=== PATIENT | female | born 1995 ===

== ENCOUNTER 2024-07-01 05:26 | Day surgery (SDC) | payer OTHER ==
[2024-06-30 14:08] VITALS: BMI 29.8
[2024-07-01] MEDS ORDERED: LIDOCAINE HCL/PF 1% SDV 5ML VIAL ONE (07:59)
[2024-07-01] MEDS ORDERED: BUPIVACAINE HCL/PF 0.75% 10 ML VIAL ONE (07:59)
[2024-07-01 13:31] VITALS: RESP 16
[2024-07-01] MEDS: LIDOCAINE HCL 1% PRESERVATIVE FREE - 30ML VIAL IJ ONE (14:50)
[2024-07-01] MEDS: BUPIVACAINE HCL/PF 0.75% 10 ML VIAL NR ONE ×2 (14:57)
[2024-07-01 15:48] VITALS: BP 118/70; PULSE 63; TEMP 98
== END 2024-07-01 15:16 | disposition home or self-care (01) ==
LOC: JASU-SURG 05:26
PROVIDERS: ATTEND Pain Medicine Pain Medicine
PROC: 3E0T3BZ Introduction of Anesthetic Agent into Peripheral Nerves and Plexi, Percutaneous Approach (ICD-10-PCS; principal; 2024-07-01 14:30)
DX: M47.816 Spondylosis without myelopathy or radiculopathy, lumbar region (principal)
CPT/HCPCS: 76000-TC-FY; 81025